=== PATIENT | female | born 1965 | race Caucasian/White ===

== ENCOUNTER → 2024-01-20 11:33 | Outpatient (REF) | payer OTHER, SELFPAY | LOC: WDC 11:33 | PROVIDERS: ATTENDING PHYSICIAN Nurse Practitioner Adult Health | DX: Z12.31 Encounter for screening mammogram for malignant neoplasm of breast (principal) | CPT/HCPCS: 77063; 77067 ==

== ENCOUNTER 2024-11-09 08:15 | Day surgery (SDC) | payer OTHER, SELFPAY | END 2024-11-09 12:00 | disposition home or self-care (01) | LOC: GI 08:15 | PROVIDERS: ATTENDING PHYSICIAN Internal Medicine Gastroenterology | DX: Z12.11 Encounter for screening for malignant neoplasm of colon (principal); K57.30 Diverticulosis of large intestine without perforation or abscess without bleeding; K64.0 First degree hemorrhoids; K63.5 Polyp of colon | CPT/HCPCS: 45380; 88305 ==

== ENCOUNTER → 2025-01-23 11:43 | Outpatient (REF) | payer OTHER, SELFPAY | LOC: WDC 11:43 | PROVIDERS: ATTENDING PHYSICIAN Obstetrics & Gynecology; FAMILY PHYSICIAN Family Medicine | DX: Z12.31 Encounter for screening mammogram for malignant neoplasm of breast (principal) | CPT/HCPCS: 77063; 77067 ==

== ENCOUNTER → 2025-01-29 13:14 | Outpatient (REF) | payer OTHER, SELFPAY | LOC: RAD 13:14 | PROVIDERS: ATTENDING PHYSICIAN Nurse Practitioner Family; FAMILY PHYSICIAN Family Medicine | DX: S80.11XD Contusion of right lower leg, subsequent encounter (principal) | CPT/HCPCS: 76882 ==

== ENCOUNTER → 2025-04-27 09:59 | Outpatient (REF) | payer OTHER, SELFPAY | LOC: WDC 09:59 | PROVIDERS: ATTENDING PHYSICIAN Obstetrics & Gynecology | DX: N64.4 Mastodynia (principal) | CPT/HCPCS: 76642 ==

== ENCOUNTER → 2025-05-21 10:18 | Outpatient (REF) | payer OTHER, SELFPAY | LOC: WDC 10:18 | PROVIDERS: ATTENDING PHYSICIAN Obstetrics & Gynecology | DX: N64.4 Mastodynia (principal) | CPT/HCPCS: 77061; 77065 ==